=== PATIENT | male | born 1995 | race Caucasian/White ===

== ENCOUNTER 2017-01-12 21:30 | Emergency (ER) | payer SELFPAY ==
[~2017-01-12] VITALS: Ht 175.3 cm; Wt 68.0 kg
[2017-01-12 21:30] VITALS: BP 146/85; PULSE 98; RESP 20; TEMP 99; O2SAT 100
--- NOTE | 2017-01-12 22:10 | NUR ---
David delgadillo in [facility] - 01/13/17 at 0509 by [email or web address] at bedside examining pt
--- NOTE | 2017-01-12 23:10 | NUR ---
Patient to ER bed 4 to gown for evaluation. Side rails up. Report given to CARLOZ CROCKER.
--- NOTE | 2017-01-12 23:20 | NUR ---
at bedside examining pt
[2017-01-12 23:36] LABS: BASOPHILS # (AUTO) 0.1 K/uL (0.0-0.2); BASOPHILS % (AUTO) 0.4 % (0.0-2.0); EOSINOPHILS # (AUTO) 0.2 K/uL (0.0-0.4); EOSINOPHILS % (AUTO) 1.3 % (0.0-4.0); HEMATOCRIT 42.7 % (36-54); HEMOGLOBIN 14.2 g/dL (14.0-18.0); LYMPHOCYTES % (AUTO) 16.2 % (20.5-51.5); MEAN CORPUSCULAR HEMOGLOBIN 30 pg (27-31); MEAN CORPUSCULAR HGB CONC 33 % (32-36); MEAN CORPUSCULAR VOLUME 90 fL (79.0-98.0); MONOCYTES % (AUTO) 8.2 % (1.7-9.3); NEUTROPHILS # (AUTO) 9.3 K/uL (1.8-7.7); NEUTROPHILS % (AUTO) 73.9 % (40.0-70.0); PLATELET COUNT (AUTO) 262 K/uL (130-430); RED BLOOD CELL COUNT(AUTO) 4.76 MIL/uL (4.2-6.2); RED CELL DISTRIBUTION WIDTH 12.8 % (9.0-15.0); WHITE BLOOD COUNT (AUTO) 12.6 K/uL (4.8-10.8)
[2017-01-13] MEDS ORDERED: ceFAZolin SODIUM 1 GM VIAL IM ONE (00:30)
[2017-01-13 00:55] VITALS: BP 136/72; PULSE 88; RESP 18; TEMP 98.6; O2SAT 99
--- NOTE | 2017-01-13 00:55 | NUR ---
Patient given written and verbal discharge instructions and verbalizes understanding. ER MD Jackman discussed with patient the results and treatment provided. Patient in stable condition. ID arm band removed. No Rx given. Patient educated on pain management and to follow up with PMD. Pain Scale 0/10 Opportunity for questions provided and answered.
== END 2017-01-13 00:55 | disposition home or self-care (01) ==
LOC: SED 21:30
DX: L03.116 Cellulitis of left lower limb (principal)
CPT/HCPCS: 36415; 73610; 85025; 85379; 93971; 96372; 99285; J0690

== ENCOUNTER 2020-06-07 02:11 | Emergency (ER) | payer SELFPAY ==
[~2020-06-07] VITALS: Ht 175.3 cm; Wt 68.0 kg
[2020-06-07 02:13] VITALS: BP_SYST 124
--- NOTE | 2020-06-07 02:13 | NUR ---
Patient to ER bed 05 to gown for evaluation. Side rails up. Report given to LIZZETTE SIN
--- NOTE | 2020-06-07 02:15 | NUR ---
ER Dr. Bass at bedside examining patient.
--- NOTE | 2020-06-07 02:15 | NUR ---
pt BIB BLS accompanied by [facility] [place] [facility] with c/o of shortness of breath. pt was being [facility] [place] [facility] to be [facility] and started complaining of shortness of breath. upon arrival patient had even and unlabored breathing, no signs of acute distress, skin pink and warm, and was sleeping. upon arrival pt O2 sat was 100% on room air. Deputy Robles at bedside.
--- NOTE | 2020-06-07 02:27 | NUR ---
xray at beside.
--- NOTE | 2020-06-07 02:39 | NUR ---
spoke with Mary Kate, pts girlfriend, to come pick him up from ER.
--- NOTE | 2020-06-07 02:49 | NUR ---
pt able to ambulate with steady gait with even and unlabored breathing.
--- NOTE | 2020-06-07 02:50 | NUR ---
PT STATING HE IS EXPERIENCING CHEST PAIN 05/13. MD NOTIFIED AND AT BEDSIDE REEVALUATING PT.
[2020-06-07] MEDS ORDERED: IPRATROPIUM/ALBUTEROL SULFATE 3 ML AMPUL.NEB (DUONEB) INH ONE (03:15)
--- NOTE | 2020-06-07 03:39 | NUR ---
RESPIRATORY AT BEDSIDE. PT REFUSING BREATHING TX AND ALL FURTHER TREATMENT.
--- NOTE | 2020-06-07 03:40 | NUR ---
PT REFUSING LAB DRAW.
--- NOTE | 2020-06-07 03:40 | NUR ---
PT STATES HIS SYMPTOMS HAVE RESOLVED AND HE NO LONGER IS EXPERIENCING PAIN. MD AT BEDSIDE.
[2020-06-07 03:42] VITALS: BP_SYST 139
--- NOTE | 2020-06-07 03:42 | NUR ---
Patient given written and verbal discharge instructions and verbalizes understanding. ER MD discussed with patient the results and treatment provided. Patient in stable condition. ID arm band removed. NO Rx given. Patient educated on pain management and to follow up with PMD. Pain Scale 0/10. Opportunity for questions provided and answered. Medication side effect fact sheet provided.
== END 2020-06-07 03:42 | disposition home or self-care (01) ==
LOC: SED 02:11
DX: R07.89 Other chest pain (principal); R06.00 Dyspnea, unspecified
CPT/HCPCS: 71045; 93005; 99283